=== PATIENT | female | born 1935 | race Caucasian/White ===

== ENCOUNTER 2018-08-19 07:03 | Day surgery (SDC) | payer OTHER, MEDICARE ==
[2018-08-14 17:12] VITALS: BMI 30.2
[2018-08-19] MEDS ORDERED: LIDOCAINE HCL 2% (20ML MULTI-DOSE VIAL) NR ONE (09:57)
[2018-08-19] MEDS ORDERED: BUPIVACAINE HCL/PF 0.5% (5MG/ML) 10 ML VIAL ONE (09:57)
[2018-08-19] MEDS ORDERED: MIDAZOLAM HCL 2 MG/2 ML SINGLE DOSE VIAL ONE (10:09)
[2018-08-19] MEDS ORDERED: DEXAMETHASONE SOD PHOSPHATE 4 MG/1 ML VIAL ONE (10:12)
[2018-08-19] MEDS ORDERED: CLINDAMYCIN PHOSPHATE 600 MG/4 ML VIAL ONE (10:12)
[2018-08-19] MEDS ORDERED: ONDANSETRON 4 MG/2 ML VIAL ONE (10:12)
[2018-08-19] MEDS ORDERED: KETOROLAC TROMETHAMINE 30 MG/1 ML VIAL ONE (10:12)
[2018-08-19] MEDS ORDERED: BUPIVACAINE HCL/PF 0.5% (5MG/ML) 10 ML VIAL IJ ONE (10:15)
[2018-08-19] MEDS ORDERED: LIDOCAINE HCL 2% (50ML VIAL) NR ONE (10:15)
[2018-08-19 11:33] VITALS: TEMP 98
[2018-08-19] MEDS ORDERED: ACETAMINOPHEN 325 MG TABLET (FP) ONE (11:40)
[2018-08-19 13:54] VITALS: BP 130/68; PULSE 69
--- NOTE | 2018-08-19 20:26 | OP ---
DATE OF OPERATION: 08/19/2018 PREOPERATIVE DIAGNOSES: 1. Left foot 4th digit hammer toe 2. 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 POSTOPERATIVE DIAGNOSES: 1. Left foot 4th digit hammer toe 2. 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 OPERATION: 1. Arthroplasty of the proximal phalanx head, left foot. 2. Exostectomy of the medial aspect of the proximal phalanx head, left foot hallux. HEMOSTASIS: Left pneumatic ankle tourniquet set at 250 mmHg. ATTENDING SURGEON: Albert Urban MD ASSEMBLER CARDS AND ANNOUNCEMENTS: Jerardo Herrera, PGY-3 ANESTHESIA: Local with IV sedation. ESTIMATED BLOOD LOSS: 2 mL. MATERIALS: 2-0 Vicryl, 3-0 Vicryl, 4-0 nylon. PATHOLOGY: Bone from 4th digit and also bone from hallux. DESCRIPTION OF PROCEDURE: The patient was brought to the operating room and placed on the operating room table in the supine position. Pneumatic ankle tourniquet was then placed on the patient's left ankle. Following IV sedation, local anesthesia to the left foot was given in a V block fashion to the 4th digit and also proximal to the hallux using 1:1 mixture of 1% lidocaine plain and 0.5% Marcaine plain. The foot was then scrubbed, prepped, and draped in the usual aseptic manner. The foot was lifted for exsanguination and then the tourniquet was inflated. Attention was then directed to the dorsal aspect of the 4th digit of the left foot. Two semi-elliptical skin incisions were made to remove a skin wedge over the proximal phalanx of the 4th toe. The skin wedge was removed in toto. Neurovascular structures were retracted as necessary. Minimal bleeding was noted at this time. The skin incision was carried down to the level of subcutaneous and tendon. A transverse tenotomy was made over the PIPJ of the 4th digit. A No. 15 blade was used to free up the soft tissue surrounding the proximal phalanx head until the proximal phalanx head was completely exposed at this time. A double action bone cutter was used to resect the head of the prophylaxis phalanx. A bone rongeur was used to smooth down the sharp edges the remaining distal 4th proximal phalanx. At this time, the surgical site was then flushed with normal saline solution. Then 3-0 Vicryl was used to reapproximate the extensor tendon that had a tenotomy performed previously. The 4th digit laid in a more corrected position at this time. After it was determined that the 4th digit hammer toe was corrected, 4-0 nylon sutures were used to close the skin at this time. At this time, attention was then directed to the medial aspect of the hallux. A linear longitudinal incision was made over the PIPJ of the hallux on the left foot. The incision was carried down to the level of tendon and bone. Vital neurovascular structures were retracted as necessary. Minimal bleeding was noted at this time. A No. 15 blade was used to reflect the tendon until the level of bone was exposed at this time. The exostosis was palpated on the distal aspect of the medial proximal phalanx head. A power bur was then used to resect the exostosis that was noted at this time. After resection of the exostosis with the power bur, a bone rongeur was then used to remove any prominent or sharp edges of the exostosis resection site. Normal saline was used to flush the surgical site at this time. Then 2-0 Vicryl was used to reapproximate the tendon that was dissected during this procedure. Then 2-0 Vicryl was used to reapproximate the deep structures of the surgical site. Then 4-0 nylon was used to close the surgical site skin. At this time, it was noted that the exostosis was significantly reduced and there were no more prominent edges on the left foot hallux. Upon completion of the procedure, the skin incision sites were dressed with Adaptic, 4 x 4 gauze, ABD pad, and Kerlix. At the end, Elastoplast was applied circumferentially over the dressings. The tourniquet was then deflated, and immediate hyperemia returned to all digits of the left foot. Capillary refill time was less than 2 seconds to all digits on the left foot. The patient tolerated the procedure well and was transferred to the recovery room with all vital signs stable and vascular status intact to the left foot. Following postoperative monitoring, the patient will be discharged and given instruction and prescriptions, which were discussed prior to surgery. Jerardo Herrera dictating for GEMINI Hernandez DPM [id number]
--- NOTE | 2018-08-22 14:32 | PATH ---
Surgical Pathology Report Patient Name: ADELAIDA SALAS [facility]. Rec. #: [id number] /Age/Gender: 1935 (Age: 83) / F Account: [id number] Location: [facility] AMBULATORY Taken: 08/19/2018 Received: 08/20/2018 Reported: 08/22/2018 Physicians: Ayush Urban Specimen(s) Received SKIN AND BONE, LEFT FOOT, FOURTH TOE Clinical History Hammertoe left fourth toe, exostosis left talus Final Diagnosis SKIN AND BONE, FOOT, FOURTH TOE, LEFT, ARTHROPLASTY AND EXOSTECTOMY: BONE WITH DEGENERATIVE CHANGES, DENSE FIBROCONNECTIVE TISSUE, AND UNREMARKABLE SKIN. Electronically Signed Jia Montes M.D. Gross Description Received in formalin labeled "skin and bone left foot fourth toe," are 3 cotter-yellow bone fragments ranging from 0.1-0.8 cm in greatest dimension. Also received within the same container is a 1.7 x 0.7 cm cotter, elliptical, unoriented skin shave with a 0.2 cm in greatest dimension central ulcerated lesion. Administrative Specialist sections are submitted in one cassette, following decalcification. 08/21/201808/21/2018
== END 2018-08-19 12:40 | disposition home or self-care (01) ==
LOC: FASU 07:03
PROVIDERS: ATTEND Podiatrist
PROC: 0SRQ0JZ Replacement of Left Toe Phalangeal Joint with Synthetic Substitute, Open Approach (ICD-10-PCS; principal; 2018-08-19 10:24)
PROC: 0QBR0ZZ Excision of Left Toe Phalanx, Open Approach (ICD-10-PCS; 2018-08-19 10:24)
DX: M20.42 Other hammer toe(s) (acquired), left foot (principal); M25.775 Osteophyte, left foot
CPT/HCPCS: 88304-TC; 88311-TC